=== PATIENT | female | born 1940 | race Caucasian/White ===

== ENCOUNTER → 2018-10-22 | Outpatient (CLI) | payer OTHER ==
[~2018-10-22] MED LIST: ALENDRONATE SOD70 MG PO; BAYER CHEWABLE81 MG PO; COZAAR100 MG PO; CRESTOR10 MG PO; LEVOTHYROXINE 0.1 MG PO; LOPRESSOR50 PO
== END ==
LOC: M.RAD 10:22
DX: Z12.31 Encounter for screening mammogram for malignant neoplasm of breast (principal)

== ENCOUNTER → 2018-10-30 | Outpatient (CLI) | payer OTHER | LOC: M.ULTRA 10:30 | DX: N60.01 Solitary cyst of right breast (principal) ==

== ENCOUNTER → 2019-09-16 | Outpatient (CLI) | payer OTHER ==
[~2019-09-16] MED LIST changes: -CRESTOR10 MG PO; -LEVOTHYROXINE 0.1 MG PO; +NORVASC5 MG PO; +SYNTHROID100 MC1 PO; +ZOCOR 20 MG TAB20 M1 PO
--- NOTE | 2019-09-17 08:38 | CARDNUC ---
[place] [address] CARDIAC NUCLEAR IMAGING REPORT Name: ZORA ECKERT Room: [facility]#: [id number] Admission: 09/16/19 Attend Phys: Sonny العراقي, Discharge: Date of : 40 Date of Service: 09/17/19 0836 Report #: [id number] THIS REPORT FOR: cc: Raul Larry Bradley L. DO Biggs, F. Douglas MD [facility] ~ APPROVED REPORT Imaging Protocol: Rest Tc-99m/Stress Tc-99m 1 day Study performed: 09/16/2019 11:21:29 Indication: Troponin elevation, Fatigue. Patient Location: Out-Patient Stress Tech: So Fisher Stress Nurse: Shweta Li RN NM Tech:GONZALO Bey Ht: 5 ft 4 in Wt: 165 lbs BSA: 1.80 m2 BMI: 28.31 Medical History Medical History: Fatigue, Former Smoker, HTN, Hyperlipidemia, SOB, elevated troponin, lightheadedness/dizziness. Medications: Losartan, Amlodipine, Simvastatin, ASA 81 Mg. Allergies: Codeine. Cardiac Risk Factors: Age, FHX of CAD, HTN, Hyperlipidemia, SOB, Past Smoker, elevated troponin. Previous Cardiac Procedures: None Pretest Chest Pain Characteristics: No chest pain Exercise History: Indeterminate Physical Disabilities: Fatigue, occasional lightheadedness/dizziness. Meds Held (24 hrs): None Resting Data Rest SPECT myocardial perfusion imaging was performed in supine position 30 minutes following the intravenous injection of 10.1 mCi of Tc-99m Sestamibi. Time of rest injection: 944 Date: 09/16/2019 The images were gated to evaluate regional wall motion and calculate left ventricular ejection fraction. Administration Route: IV Administration Site: [place] [address] CARDIAC NUCLEAR IMAGING REPORT Name: ZORA ECKERT Room: [facility] [place]#: [id number] Admission: 09/16/19 Attend Phys: Sonny العراقي, Discharge: Date of : 40 Date of Service: 09/17/19 0836 Report #: [id number] Pharmacologic Stress Pharmacologic stress test was performed by injecting Regadenoson 0.4 mg IV push over 10-15 seconds immediately followed by the intravenous injection of 31.2 mCi of Tc-99m Sestamibi. Time of stress injection: 1124 Date: 09/16/2019 Administration Route: IV Administration Site: Right Gated Stress SPECT was performed 40 minutes after stress injection. The images were gated to evaluate regional wall motion and calculate left ventricular ejection fraction. Prone imaging was performed. Stress Test Details Stress Test: Pharmacologic stress testing performed using 0.4 mg of regadenoson per 5 mL given IV over 10 seconds. Reason for pharmacologic stress test: lightheadedness/dizziness, fatigue.. HR Max Heart Rate (APMHR): 142 bpm Resting HR: 66 bpm Target HR (85% APMHR): 120 bpm Max HR Achieved: 118 bpm % of APMHR: 83 Recovery HR: 85 bpm HR response to stress: Normal HR response to stress BP Resting BP: 151/79 mmHg Max BP: 184/73 mmHg Recovery BP: 149/66 mmHg BP response to stress: Normal blood pressure response to stress. ECG Resting ECG: Sinus Rhythm with nonspecific T abnormalities Stress ECG: Sinus Rhythm, nonspecific ST-T abnormalities ST Change: Upsloping ST depression Maximum ST Deviation: 0.2 mm Arrhythmia: None Recovery ECG: Sinus Rhythm, nonspecific ST-T abnormalities Recovery ST Change: Upsloping ST depression Recovery ST Deviation: 0 mm Recovery Arrhythmia: [place] [address] CARDIAC NUCLEAR IMAGING REPORT Name: ZORA ECKERT Room: [facility]#: [id number] Admission: 09/16/19 Attend Phys: Sonny العراقي, Discharge: Date of : 40 Date of Service: 09/17/19 0836 Report #: [id number] Reason for Termination: Completed protocol Stress Symptoms: Abdominal discomfort, Lightheaded, Dizziness. Exercise duration: 00 min 00 sec Exercise capacity: 1.00 METs Nurse Comments A 78 year old female presented for a sitting Lexiscan r/t elevated troponin and increased fatigue and dyspnea. Test well tolerated. Recovery unremarkable with PO caffeine, effective. Patient was escorted by staff to Nuclear Medicine for imaging. Patient was stable and stated she felt good at that time. Stress ECG Conclusion Normal hemodynamic response to pharmacologic stress. Clinical: Non-ischemic Non-diagnostic pharmacologic EKG stress due to failure to attain target HR. Study Data At rest, the left ventricular ejection fraction was 0.76%.. Post stress, the left ventricular ejection was 0.81%.. SSS: 2 SRS: 0 SDS: 2 TID = 0.87. Perfusion Prone images were obtained and were normal Normal perfusion on both the stress and rest images. Images were reviewed using [employer]. Wall Motion Normal left ventricular wall motion. Nuclear Conclusion ECG Findings: non-diagnostic Clinical Findings: negative for ischemia Nuclear Findings: negative for ischemia Exercise Capacity: not assessed Left Ventricular Function: normal Risk Study: low Normal study. No scintigraphic evidence for myocardial ischemia or scar. <Conclusion> [place] [address] CARDIAC NUCLEAR IMAGING REPORT Name: ECKERTZROA LONG Room: [facility] [place]#: [id number] Admission: 09/16/19 Attend Phys: Sonny العراقي, Discharge: Date of : 40 Date of Service: 09/17/19 0836 Report #: [id number] Normal hemodynamic response to pharmacologic stress. Clinical: Non-ischemic Non-diagnostic pharmacologic EKG stress due to failure to attain target HR. <ELECTRONICALLY SIGNED> By: Keerthi Alonso MD, FACC 09/17/19835 5 5 Keerthi Alonso MD, FACC /INF
== END ==
LOC: M.NUC 08-27 08:25
DX: R79.89 Other specified abnormal findings of blood chemistry (principal); I10 Essential (primary) hypertension; E78.5 Hyperlipidemia, unspecified; Z87.891 Personal history of nicotine dependence